=== PATIENT | female | born 1965 | race Two or more races ===

== ENCOUNTER → 2024-01-26 | Outpatient (CLI) | payer MEDICAID | END | disposition home or self-care (01) | LOC: MRI 09:24 | PROVIDERS: ATTEND Physical Medicine & Rehabilitation | DX: M48.07 Spinal stenosis, lumbosacral region (principal); M79.10 Myalgia, unspecified site; M43.26 Fusion of spine, lumbar region; M46.1 Sacroiliitis, not elsewhere classified; M25.552 Pain in left hip; M54.59 Other low back pain; M16.12 Unilateral primary osteoarthritis, left hip; M47.816 Spondylosis without myelopathy or radiculopathy, lumbar region; M48.04 Spinal stenosis, thoracic region; M41.86 Other forms of scoliosis, lumbar region | CPT/HCPCS: 72148 ==